=== PATIENT | male | born 2000 | race Caucasian/White ===

== ENCOUNTER 2024-06-16 12:31 | Emergency (ER) | payer OTHER ==
[~2024-06-16] VITALS: Ht 170.2 cm; Wt 105.5 kg
[2024-06-16] MEDS ORDERED: EMVE100C2 PO (13:23)
[2024-06-16 14:08] VITALS: BP 142/69; TEMP 98.3; O2SAT 97
== END 2024-06-16 14:12 | disposition home or self-care (01) ==
LOC: M ED 12:31
DX: B82.9 Intestinal parasitism, unspecified (principal); F10.10 Alcohol abuse, uncomplicated; Z79.899 Other long term (current) drug therapy

== ENCOUNTER → 2024-06-17 | Outpatient (CLI) | payer OTHER ==
[~2024-06-17] MED LIST: EMVE100C2 PO
== END ==
LOC: M LAB 15:45
PROVIDERS: ATTEND Registered Nurse
DX: B83.9 Helminthiasis, unspecified (principal)